=== PATIENT | female | born 1975 | race African-American/Black ===

== ENCOUNTER 2017-11-08 10:57 | Emergency (ER) | payer SELFPAY ==
[~2017-11-08] VITALS: Ht 160 cm; Wt 81.6 kg
[2017-11-08] MEDS ORDERED: KETOROLAC 30 MG/ML VIAL. IV ONE (11:45)
[2017-11-08 11:50] LABS: BASO # 0.1 x10^3/uL (0.0-0.2); BASO % 1 % (0-3); EOS # 0.1 x10^3/uL (0.0-0.7); EOS % 2 % (0-3); HEMATOCRIT 36.9 % (36.0-47.0); HEMOGLOBIN 11.7 g/dL (12.0-15.5); LYMPH % 39 % (24-48); MEAN CORPUSCULAR HEMOGLOBIN 26 pg (25-35); MEAN CORPUSCULAR HGB CONC 32 g/dL (31-37); MEAN CORPUSCULAR VOLUME 83 fL (79-100); MONO # 0.3 x10^3/uL (0.0-1.1); MONO % 6 % (0-9); NEUT # 2.7 x10^3uL (1.8-7.7); NEUT % 53 % (31-73); PLATELET COUNT 275 x10^3/uL (140-400); RED BLOOD COUNT 4.46 x10^6/uL (3.50-5.40); RED CELL DISTRIBUTION WIDTH 13.1 % (11.5-14.5); WHITE BLOOD COUNT 5.2 x10^3/uL (4.0-11.0)
[2017-11-08 11:55] LABS: BACTERIA,URINE MOD /HPF (0-FEW); BILIRUBIN,URINE NEG (NEG); CLARITY,URINE CLOUDY; COLOR,URINE YELLOW; GLUCOSE,URINE NEG (NEG); NITRITE,URINE NEG (NEG); RBC,URINE RARE /HPF (0-2); SQUAMOUS EPITHELIAL CELL,UR MOD /LPF; UROBILINOGEN,URINE 0.2 mg/dL (0.2 mg/dL)
--- NOTE | 2017-11-08 11:56 | PHYS DOC ---
Past History Past Medical History: No Pertinent History Past Surgical History: No Surgical History Alcohol Use: None Drug Use: None Adult General Chief Complaint Chief Complaint: PELVIC PAIN HPI HPI 42-year-old female patient complaining of gradual onset of right lower quadrant pain as a constant and aching pain for the last 3 days without radiation. Patient denies nausea and vomiting, fever and chills, urinary symptoms, vaginal bleeding or discharge, diarrhea and constipation without change of pain with eating or movement. Patient rated her pain 8/10 and states she took over-the- counter ibuprofen without improvement of her pain. Patient states she has had episodes of the same pain for the last 14 days after her last that usually happens once every several months but she didn't seek any medical attention for her problem. Patient stopped her menstruation 5 months ago. Review of Systems Review of Systems Constitutional: Denies fever or chills [] Eyes: Denies change in visual acuity, redness, or eye pain [] HENT: Denies nasal congestion or sore throat [] Respiratory: Denies cough or shortness of breath [] Cardiovascular: No additional information not addressed in HPI [] GI: Reports abdominal pain, denies nausea, vomiting, bloody stools or diarrhea [ ] : Denies dysuria or hematuria [] Musculoskeletal: Denies back pain or joint pain [] Integument: Denies rash or skin lesions [] Neurologic: Denies headache, focal weakness or sensory changes [] Endocrine: Denies polyuria or polydipsia [] All other systems were reviewed and found to be within normal limits, except as documented in this note. Current Medications Current Medications Current Medications Medications (Trade) Dose Ordered Sig/[facility] Start Time Stop Time Status Last Admin Dose Admin Ketorolac Tromethamine (Toradol) 30 mg 1X ONCE 11/08/17 11:45 11/08/17 11:46 DC Allergies Allergies Allergies Coded Allergies Type Severity Reaction Last Updated Verified Penicillins Allergy Intermediate rash 06/02/15 No erythromycin base Allergy Unknown 11/08/17 Yes Physical Exam Physical Exam Constitutional: Well developed, well nourished, mild distress, non-toxic appearance. [] HENT: Normocephalic, atraumatic, bilateral external ears normal, oropharynx moist, no oral exudates, nose normal. [] Eyes: PERRLA, EOMI, conjunctiva normal, no discharge. [] Neck: Normal range of motion, no tenderness, supple, no stridor. [] Cardiovascular:Heart rate regular rhythm, no murmur [] Lungs & Thorax: Bilateral breath sounds clear to auscultation [] Abdomen: Bowel sounds normal, soft, no tenderness, no masses, no pulsatile masses. [] Skin: Warm, dry, no erythema, no rash. [] Back: No tenderness, no CVA tenderness. [] Extremities: No tenderness, no cyanosis, no clubbing, ROM intact, no edema. [] Neurologic: Alert and oriented X 3, normal motor function, normal sensory function, no focal deficits noted. [] Psychologic: Anxious, judgement normal, mood normal. [] Current Patient Data Vital Signs Vital Signs Date Time Temp Pulse Resp B/P (MAP) Pulse Ox O2 Delivery O2 Flow Rate FiO2 11/08/17 11:00 97.6 83 16 99 Room Air Lab Results Laboratory Tests Test 11/08/17 11:06 11/08/17 11:14 11/08/17 11:30 Urine Collection Type Unknown Urine Color Yellow Urine Clarity Cloudy Urine pH 5.5 Urine Specific [place] 1.025 Urine Protein Trace (NEG-TRACE) Urine Glucose (UA) Neg mg/dL (NEG) Urine Ketones (Stick) Neg mg/dL (NEG) Urine Blood Trace (NEG) Urine Nitrite Neg (NEG) Urine Bilirubin Neg (NEG) Urine Urobilinogen Dipstick 0.2 mg/dL (0.2 mg/dL) Urine Leukocyte Esterase Trace (NEG) Urine RBC Rare /HPF (0-2) Urine WBC 11-20 /HPF (0-4) Urine Squamous Epithelial Cells Mod /LPF Urine Bacteria Mod /HPF (0-FEW) Urine Mucus Slight /LPF POC Urine HCG, Qualitative hcg negative (Negative) White Blood Count 5.2 x10^3/uL (4.0-11.0) Red Blood Count 4.46 x10^6/uL (3.50-5.40) Hemoglobin 11.7 g/dL (12.0-15.5) L Hematocrit 36.9 % (36.0-47.0) Mean Corpuscular Volume 83 fL (79-100) Mean Corpuscular Hemoglobin 26 pg (25-35) Mean Corpuscular Hemoglobin Concent 32 g/dL (31-37) Red Cell Distribution Width 13.1 % (11.5-14.5) Platelet Count 275 x10^3/uL (140-400) Neutrophils (%) (Auto) 53 % (31-73) Lymphocytes (%) (Auto) 39 % (24-48) Monocytes (%) (Auto) 6 % (0-9) Eosinophils (%) (Auto) 2 % (0-3) Basophils (%) (Auto) 1 % (0-3) Neutrophils # (Auto) 2.7 x10^3uL (1.8-7.7) Lymphocytes # (Auto) 2.0 x10^3/uL (1.0-4.8) Monocytes # (Auto) 0.3 x10^3/uL (0.0-1.1) Eosinophils # (Auto) 0.1 x10^3/uL (0.0-0.7) Basophils # (Auto) 0.1 x10^3/uL (0.0-0.2) EKG EKG [] Radiology/Procedures Radiology/Procedures [] [place] [address] IMAGING REPORT Signed PATIENT: JONH SHETH ACCOUNT: [id number] : 1975 LOCATION: ER AGE: 42 SEX: F EXAM STATUS: PRE ER ORD. PHYSICIAN: ANGELICA PALMER MD REASON: right lower quadrant and pelvic pain PROCEDURE: US PELVIS W/TV Pelvic ultrasound History: Right lower quadrant and right pelvic pain. Comparison: None. Technique: Transabdominal ultrasound was performed to evaluate the uterine fundus. Endovaginal imaging was performed to evaluate optimally the endometrial canal and lower uterine segment. TRANSABDOMINAL IMAGING Findings: The uterus measures 8.5 cm in length and is suboptimally visualized. Right ovary is not well seen. The left ovary measures 2.2 x 1.5 x 2.5 cm and is unremarkable. No adnexal masses are identified. No significant free fluid is identified within the pelvis. Left ovary demonstrates normal vascular flow upon Doppler interrogation and is without evidence of torsion. ENDOVAGINAL IMAGING Findings: The uterus measures 9.1 cm in length and is unremarkable. The endometrium measures 10 mm. Right ovary measures 2.8 x 1.6 x 2.3 cm and is unremarkable. The left ovary measures 2.7 x 2.1 x 1.2 cm and is unremarkable. No adnexal masses are identified. No significant free fluid is identified within the pelvis. Both ovaries demonstrate normal vascular flow upon Doppler interrogation and are without evidence of torsion. Impression: 1. Unremarkable pelvic ultrasound. Electronically signed by: Valentin Reid MD (11/08/2017 12:15 PM) [place] [id number] Course & Med Decision Making Course & Med Decision Making Pertinent Labs and Imaging studies reviewed. (See chart for details) Evaluation of patient in ER showed 42-year-old female patient with complaining of right lower quadrant pain for the last 2 days and history of chronic abdominal pain on and off for 14 years. Patient had unremarkable physical exam and labs and pelvic ultrasound. Patient treated with Toradol and felt better. Plan to give prescription for Ultram and instructed to follow with her primary care physician. Patient had blood pressure of 150s at arrival to ER without history of hypertension and instructed to follow with her primary care physician. Dragon Disclaimer Dragon Disclaimer This electronic medical record was generated, in whole or in part, using a voice recognition dictation system. Departure Departure: Impression: Primary Impression: Abdominal pain, chronic, right lower quadrant Additional Impression: Elevated heart rate with elevated blood pressure without diagnosis of hypertension Disposition: 01 HOME, SELF-CARE (Atn 1235) Condition: IMPROVED Referrals: PCP,NO (PCP) Patient Instructions: Abdominal Pain Additional Instructions: Drink plenty of liquids Follow-up with your primary care physician in 3-5 days Return to ER if not getting better Scripts Tramadol Hcl (ULTRAM) 50 Mg Tablet 50 MG PO PRN Q6HRS Y for PAIN, #20 TAB Prov: ANGELICA PALMER MD 11/08/17 Problem Qualifiers ANGELICA PALMER MD Nov 08, 2017 11:56
[2017-11-08 12:03] LABS: ALBUMIN 3.3 g/dL (3.4-5.0); ALBUMIN/GLOBULIN RATIO 0.8 (1.0-1.7); CALCIUM 8.9 mg/dL (8.5-10.1); CREATININE 0.7 mg/dL (0.6-1.0); POTASSIUM 3.6 mmol/L (3.5-5.1); TOTAL BILIRUBIN 0.2 mg/dL (0.2-1.0); TOTAL PROTEIN 7.7 g/dL (6.4-8.2)
[2017-11-08 12:11] LABS: BARBITURATES NEG (NEG); BENZODIAZEPINES NEG (NEG); CANNABINOIDS NEG (NEG); COCAINE NEG (NEG); METHADONE NEG (NEG); OPIATES NEG (NEG); PHENCYCLIDINE NEG (NEG)
[2017-11-08 12:12] LABS: AMPHETAMINE/METHAMPHETAMINE NEG (NEG)
--- NOTE | 2017-11-08 12:17 | RAD ---
Pelvic ultrasound History: Right lower quadrant and right pelvic pain. Comparison: None. Technique: Transabdominal ultrasound was performed to evaluate the uterine fundus. Endovaginal imaging was performed to evaluate optimally the endometrial canal and lower uterine segment. TRANSABDOMINAL IMAGING Findings: The uterus measures 8.5 cm in length and is suboptimally visualized. Right ovary is not well seen. The left ovary measures 2.2 x 1.5 x 2.5 cm and is unremarkable. No adnexal masses are identified. No significant free fluid is identified within the pelvis. Left ovary demonstrates normal vascular flow upon Doppler interrogation and is without evidence of torsion. ENDOVAGINAL IMAGING Findings: The uterus measures 9.1 cm in length and is unremarkable. The endometrium measures 10 mm. Right ovary measures 2.8 x 1.6 x 2.3 cm and is unremarkable. The left ovary measures 2.7 x 2.1 x 1.2 cm and is unremarkable. No adnexal masses are identified. No significant free fluid is identified within the pelvis. Both ovaries demonstrate normal vascular flow upon Doppler interrogation and are without evidence of torsion. Impression: 1. Unremarkable pelvic ultrasound. Electronically signed by: Valentin Reid MD (11/08/2017 12:15 PM) [place] [id number]
[2017-11-08] MEDS ORDERED: TRAM-48 PO (12:36)
[2017-11-08 12:45] VITALS: BP 133/74
== END 2017-11-08 12:49 | disposition home or self-care (01) ==
LOC: ER 10:57
DX: G89.29 Other chronic pain (principal); R10.31 Right lower quadrant pain; R03.0 Elevated blood-pressure reading, without diagnosis of hypertension; Z88.0 Allergy status to penicillin; Z88.1 Allergy status to other antibiotic agents
CPT/HCPCS: 36415; 76830; 76856; 80053; 80307; 81001; 81025; 83690; 85025; 87086; 96374; 99285; J1885; G0479